=== PATIENT | female | born 2000 | race Caucasian/White ===

== ENCOUNTER 2019-06-11 14:31 | Inpatient (IN) ==
[2019-06-11 11:40] LABS: Basophils % 0.3 %; Eosinophils # 0.1 K/mcL (0.0-0.6); Eosinophils % 0.5 %; Hematocrit 38.6 % (35.3-44.9); Hemoglobin 13.3 g/dL (11.5-15.4); Immature Granulocytes % 0.9 % (0-4); Lymphocytes # 2.2 K/mcL (0.6-4.6); Lymphocytes % 19.6 %; Mean Corpuscular HGB Conc 34.5 g/dL (31.6-35.5); Mean Corpuscular Hemoglobin 30.2 pg (28.0-33.3); Mean Corpuscular Volume 87.5 fL (83.0-100.0); Mean Platelet Volume 10.4 fL (9.4-12.4); Monocytes # 0.7 K/mcL (0.0-1.3); Monocytes % 6.2 %; Platelet Count 263 K/mcL (140-400); Red Blood Count 4.41 M/mcL (3.82-4.97); Red Cell Distribution Width 11.9 % (11.5-14.5); Segmented Neutrophils % 72.5 %
[2019-06-11 11:47] LABS: Amphetamine Screen,Urine Negative ng/mL (Cutoff=1000); Barbiturate Screen,Urine Negative ng/mL (Cutoff=200); Benzodiazepines Screen,Urine Negative ng/mL (Cutoff=200); Cannabinoid Screen,Urine Negative ng/mL (Cutoff = 50); Cocaine Screen,Urine Negative ng/mL (Cutoff= 300); Opiate Screen,Urine Negative ng/mL (Cutoff=300); Phencyclidine Screen,Urine Negative ng/mL (Cutoff=25); Protein/Creatinine Ratio,Urine 0.32 mg/mg (0.00-0.20)
[2019-06-11 12:08] LABS: Alanine Aminotransferase 9 Units/L (7-52); Aspartate Amino Transferase 15 Units/L (13-39); BUN/Creatinine Ratio 18 (6-26); Blood Urea Nitrogen 14 mg/dL (6-20); Lactate Dehydrogenase 133 Units/L (140-271); Uric Acid 7.1 mg/dL (2.3-7.6); eGFR For African Americans > 60 (> 60); eGFR For Non-African Americans > 60 (> 60)
[2019-06-11] MEDS: miSOPROStoL 25 MCG TABLET VG SCH (13:21)
[2019-06-11] MEDS: Ringers Solution, Lactated 1,000 ML IVC SCH (13:51)
[~2019-06-11 14:31] MED LIST: *HR* Nalbuphine 10 MG/ML AMPUL IVP PRN; FLU Vac QV 19-20 (6Month+)/PF 0.5 ML SYRINGE IM ONE; Famotidine 20 MG/2 ML VIAL IVP PRN; Lidocaine 1% 20 ML MDV INFILT PRN; Metoclopramide 10 MG/2 ML VIAL IVP PRN; Naloxone 0.4 MG/ML INJ IVP PRN; miSOPROStoL 25 MCG TABLET PO ONE
[2019-06-11] MEDS: Epidural Premix (fent/bupiv) 110 ML EP SCH (22:38)
[2019-06-11] MEDS ORDERED: Oxytocin 20 units/ LR 1000 mL 20 UNIT/1,000 ML BAG IVC SCH (22:45)
[2019-06-11] MEDS: Ondansetron 4 MG/2 ML VIAL IVP PRN (23:09)
[2019-06-12] MEDS: Ringers Solution, Lactated 1,000 ML IVC SCH (02:24)
[2019-06-12] MEDS: Epidural Premix (fent/bupiv) 110 ML EP SCH ×2 (02:42→08:09)
[2019-06-12] MEDS: D5% in Lactated Ringers 1,000 ML IVC SCH (09:08)
[2019-06-12] MEDS ORDERED: Penicillin G Potassium 5,000,000 UNIT in 0.9 % Sodium Chloride Mini Bag 100 ML IVPB ONE (09:50)
[2019-06-12] MEDS: Ondansetron 4 MG/2 ML VIAL IVP PRN ×2 (12:34→17:57)
[2019-06-12] MEDS ORDERED: *HR* Morphine Sulfate/PF 10 MG/10 ML AMPUL ONE (14:59)
[2019-06-12] MEDS ORDERED: *HR* Oxytocin 10 UNIT/ML VIAL IM ONE (14:59)
[2019-06-12] MEDS ORDERED: Chloroprocaine/PF 20 ML VIAL INFILT ONE ×2 (14:59→15:22)
[2019-06-12] MEDS ORDERED: Ondansetron 4 MG/2 ML VIAL IVP PRN ×2 (15:54→19:49)
[2019-06-12] MEDS ORDERED: Acetaminophen IV 1,000 MG/100 ML INFUS..BTL IVPB ONE (15:54)
[2019-06-12] MEDS: *HR* HYDROmorphone (PF) 1 MG/ML SYRINGE IVP PRN ×2 (16:28→16:50)
[2019-06-12] MEDS ORDERED: NIFEdipine XL (24 HR) 30 MG TAB.ER.24 PO SCH (17:15)
[2019-06-12] MEDS ORDERED: Simethicone 80 MG TAB.CHEW PO PRN (19:49)
[2019-06-12] MEDS ORDERED: Metoclopramide 10 MG/2 ML VIAL IVP PRN (19:49)
[2019-06-12] MEDS ORDERED: Sennosides 8.6 MG TABLET PO PRN (19:49)
[2019-06-12] MEDS: *HR* OxyCODONE/APAP 5/325 TABLET PO PRN (20:48)
[2019-06-12] MEDS: Oxytocin 20 units/ LR 1000 mL 20 UNIT/1,000 ML BAG IVC SCH (20:49)
[2019-06-13] MEDS: Ibuprofen 600 MG TABLET PO PRN ×4 (00:30→23:27)
[2019-06-13] MEDS: *HR* OxyCODONE/APAP 5/325 TABLET PO PRN ×6 (00:31→23:27)
[2019-06-13] MEDS: cefOXitin 2,000 MG in Water for inj. (sterile) 20 ML IVP SCH ×3 (01:15→17:47)
[2019-06-13] MEDS: Oxytocin 20 units/ LR 1000 mL 20 UNIT/1,000 ML BAG IVC SCH (05:12)
[2019-06-13] MEDS: Prenatal Vit/FA 1 EACH TABLET PO SCH (09:06)
[2019-06-13] MEDS: NIFEdipine XL (24 HR) 30 MG TAB.ER.24 PO SCH (09:06)
[2019-06-13] MEDS ORDERED: Benzocaine/Menthol 56 GM AEROSOL SPRAY TP PRN (09:20)
[2019-06-13 09:55] LABS: Basophils % 0.2 %; Eosinophils % 0.1 %; Hematocrit 32.4 % (35.3-44.9); Immature Granulocytes % 0.6 % (0-4); Lymphocytes # 1.5 K/mcL (0.6-4.6); Lymphocytes % 12.4 %; Mean Corpuscular HGB Conc 33.6 g/dL (31.6-35.5); Mean Corpuscular Hemoglobin 29.9 pg (28.0-33.3); Mean Platelet Volume 10.2 fL (9.4-12.4); Monocytes # 0.8 K/mcL (0.0-1.3); Monocytes % 6.7 %; Neutrophils # 9.7 K/mcL (1.6-8.9); Platelet Count 178 K/mcL (140-400); Red Blood Count 3.64 M/mcL (3.82-4.97); Red Cell Distribution Width 12.1 % (11.5-14.5); White Blood Count 12.1 K/mcL (4.3-11.1)
[2019-06-13 09:56] LABS: Hemoglobin 10.9 g/dL (11.5-15.4)
[2019-06-13 10:14] LABS: Alanine Aminotransferase 8 Units/L (7-52); Aspartate Amino Transferase 17 Units/L (13-39); BUN/Creatinine Ratio 12 (6-26); Blood Urea Nitrogen 9 mg/dL (6-20); Lactate Dehydrogenase 206 Units/L (140-271); Uric Acid 6.8 mg/dL (2.3-7.6); eGFR For African Americans > 60 (> 60); eGFR For Non-African Americans > 60 (> 60)
[2019-06-14] MEDS ORDERED: Rho Immune Globulin 1,500 UNIT SYRINGE IM ONE (04:02)
[2019-06-14] MEDS: *HR* OxyCODONE/APAP 5/325 TABLET PO PRN ×3 (04:22→11:56)
[2019-06-14] MEDS: Oxytocin 20 units/ LR 1000 mL 20 UNIT/1,000 ML BAG IVC SCH (07:17)
[2019-06-14] MEDS: miSOPROStoL 25 MCG TABLET VG SCH (07:19)
[2019-06-14] MEDS: Penicillin G Potassium 2,500,000 UNIT in 0.9 % Sodium Chloride 100 ML IVPB SCH (07:20)
[2019-06-14] MEDS: Ringers Solution, Lactated 1,000 ML IVC SCH (07:20)
[2019-06-14] MEDS: D5% in Lactated Ringers 1,000 ML IVC SCH (07:21)
[2019-06-14 07:58] VITALS: BP 136/81
[2019-06-14] MEDS: Prenatal Vit/FA 1 EACH TABLET PO SCH (08:00)
[2019-06-14] MEDS: NIFEdipine XL (24 HR) 30 MG TAB.ER.24 PO SCH (08:01)
[2019-06-14] MEDS: Ibuprofen 600 MG TABLET PO PRN (08:10)
== END 2019-06-14 16:44 | disposition home or self-care (01) | DRG 540 ==
LOC: 1NENULAB → 1NENUOBS 06-12 19:17
PROVIDERS: ADMIT Advanced Practice Midwife; ATTEND Advanced Practice Midwife